=== PATIENT | female | born 1995 | race African-American/Black ===

== ENCOUNTER 2021-01-22 20:10 | Inpatient (IN) ==
[2021-01-22] MEDS ORDERED: LACTATED RINGERS 250 ML IV ONE (20:24)
[2021-01-22] MEDS ORDERED: ONDANSETRON 4 MG/2 ML VIAL IV PRN (20:24)
[2021-01-22] MEDS ORDERED: BUTORPHANOL 2 MG/ML VIAL IV PRN (20:24)
[2021-01-22] MEDS ORDERED: LACTATED RINGERS 1,000 ML IV PRN (20:24)
[2021-01-22 20:46] LABS: Basophils % 0.3 % (0.0-0.8); Eosinophils # 0.1 10*3/uL (0.0-0.87); Eosinophils % 0.8 % (0.00-10.9); Hematocrit 35.3 VOL% (35.7-47.0); Hemoglobin 11.5 GM/DL (12.0-16.0); Immature Granulocytes % 0.6 %; Immature Granulocytes Absolute 0.05 #; Lymphocytes # 1.7 10*3/uL (1.4-4.0); Lymphocytes % 19.4 % (21.3-54.2); Mean Corpuscular HGB Conc 32.6 GM/DL (32-36); Mean Corpuscular Volume 92.2 FL (87-102); Mean Platelet Volume 11.3 FL (9.6-12.0); Monocytes % 9.8 % (1.7-12.7); Neutrophils % 69.1 % (38.7-73.9); Platelet Count 201 T/CUMM (130-400); Red Blood Count 3.83 MC/CUMM (3.8-5.5); Red Cell Distribution Width 14.7 % (9.3-17.3); White Blood Count 8.7 T/CUMM (4-12)
[2021-01-22] MEDS: LACTATED RINGERS 1,000 ML IV SCH (20:52)
[2021-01-22 21:04] LABS: Albumin 2.9 G/DL (3.4-5.0); Bilirubin,Total 0.4 MG/DL (0.2-1.0); Calcium 9.6 MG/DL (8.5-10.1); Osmolality,Calculated 271.7 MOS/KG (273-304); Potassium 3.7 MMOL/L (3.5-5.1); Total Protein 6.9 G/DL (6.4-8.2)
[2021-01-23] MEDS ORDERED: TERBUTALINE 1 MG/1 ML VIAL SUBCUT PRN (02:20)
[2021-01-23] MEDS: MEPERIDINE 50 MG/1 ML VIAL IV PRN ×2 (02:27→05:35)
[2021-01-23] MEDS ORDERED: fentaNYL 2 MCG/ROPIV 0.2% EPID 100 ML EPIDURAL ONE (06:10)
[2021-01-23] MEDS ORDERED: FAMOTIDINE 20 MG/2 ML VIAL IV ONE ×2 (06:10→06:31)
[2021-01-23] MEDS ORDERED: fentaNYL 2 MCG/ROPIV 0.2% EPID 100 ML EPIDURAL SCH (06:18)
[2021-01-23] MEDS: LACTATED RINGERS 1,000 ML IV SCH (08:44)
[2021-01-23] MEDS ORDERED: OXYTOCIN/LR 20 UNIT/1,000 ML BAG IV ONE ×2 (09:26→15:59)
[2021-01-23 13:01] LABS: Cord Venous Blood HCO3 24.3 MMOL/L; Cord Venous Blood PCO2 51.5 MMHG; Cord Venous Blood PO2 24.7 MMHG
[2021-01-23] MEDS ORDERED: NALOXONE 0.4 MG/ML VIAL IV PRN (13:16)
[2021-01-23] MEDS ORDERED: BENZOCAINE 20%/MENTHOL 0.5% SPRAY 56 GM CAN TOP PRN (16:36)
[2021-01-23] MEDS ORDERED: WITCH HAZEL PADS 100/JAR TOP PRN (16:36)
[2021-01-23] MEDS ORDERED: HYDROCORTISONE 2.5% RECTAL CREAM 30 GM TUBE TOP PRN (16:36)
[2021-01-23] MEDS ORDERED: IBUPROFEN 800 MG TABLET PO PRN (19:28)
[2021-01-23] MEDS ORDERED: MAGNESIUM HYDROXIDE SUSP 30 ML UDCUP PO PRN (19:28)
[2021-01-23] MEDS ORDERED: BISACODYL 10 MG SUPP RECTAL PRN (19:28)
[2021-01-23] MEDS ORDERED: ONDANSETRON 4 MG/2 ML VIAL IV PRN (19:28)
[2021-01-23] MEDS ORDERED: ACETAMINOPHEN 500 MG TABLET PO PRN (19:28)
[2021-01-23] MEDS ORDERED: LACTATED RINGERS 1,000 ML IV SCH (19:30)
[2021-01-23] MEDS ORDERED: DOCUSATE SODIUM 100 MG CAPSULE PO SCH (21:00)
[2021-01-23] MEDS: DOCUSATE SODIUM 100 MG CAPSULE PO SCH (21:45)
[2021-01-24 05:46] LABS: Basophils # 0.1 10*3/uL (0.0-0.2); Basophils % 0.4 % (0.0-0.8); Eosinophils % 0.1 % (0.00-10.9); Hematocrit 30.6 VOL% (35.7-47.0); Hemoglobin 10.1 GM/DL (12.0-16.0); Immature Granulocytes % 0.9 %; Immature Granulocytes Absolute 0.12 #; Lymphocytes % 14.8 % (21.3-54.2); Mean Corpuscular Volume 92.2 FL (87-102); Mean Platelet Volume 11.8 FL (9.6-12.0); Monocytes % 8.3 % (1.7-12.7); Neutrophils % 75.5 % (38.7-73.9); Platelet Count 159 T/CUMM (130-400); Red Blood Count 3.32 MC/CUMM (3.8-5.5); Red Cell Distribution Width 14.9 % (9.3-17.3); White Blood Count 13.6 T/CUMM (4-12)
[2021-01-24] MEDS: valACYclovir 500 MG TABLET PO SCH (08:52)
[2021-01-24] MEDS: MULTIVITAMIN (PRENATAL) TABLET PO SCH (08:52)
[2021-01-24] MEDS: DOCUSATE SODIUM 100 MG CAPSULE PO SCH ×2 (08:52→21:15)
[2021-01-24] MEDS ORDERED: VALACYCLOVIR 1 GM PO SCH (09:00)
[2021-01-24] MEDS ORDERED: RHO(D) IMMUNE GLOBULIN 300 MCG SYRINGE IM ONE (10:34)
[2021-01-24] MEDS: IBUPROFEN 800 MG TABLET PO PRN (21:15)
[2021-01-25] MEDS: IBUPROFEN 800 MG TABLET PO PRN (05:39)
[2021-01-25 09:11] VITALS: BP 115/69
[2021-01-25] MEDS: DOCUSATE SODIUM 100 MG CAPSULE PO SCH (10:23)
[2021-01-25] MEDS: MULTIVITAMIN (PRENATAL) TABLET PO SCH (10:24)
[2021-01-25] MEDS: valACYclovir 500 MG TABLET PO SCH (11:52)
== END 2021-01-25 13:05 | disposition home or self-care (01) | DRG 560 ==
LOC: N.LDOUT 20:10 → N.LD 20:13 → N.OB 01-23 16:02
PROVIDERS: ADMIT Obstetrics & Gynecology; ATTEND Obstetrics & Gynecology